=== PATIENT | female | born 1960 | race Caucasian/White ===

== ENCOUNTER 2016-12-13 09:32 | Day surgery (SDC) | payer OTHER ==
[~2016-12-13] VITALS: Ht 157.5 cm; Wt 71.0 kg
[~2016-12-13 09:32] MED LIST: ATOR40TA68 PO; HYDR25TA6 PO; LISI-313 PO
[2016-12-13 09:56] VITALS: Ht 157.5 cm; Wt 71.0 kg
[2016-12-13] MEDS ORDERED: CIME300T14 PO (10:06)
[2016-12-13] MEDS ORDERED: FENTAnyl 50 MCG/ML VIAL ONE (11:17)
[2016-12-13] MEDS ORDERED: MIDAZOLAM 1 MG/ML 2 ML INJ ONE ×2 (11:17)
[2016-12-13 11:25] VITALS: BP 102/51; RESP 14
--- NOTE | 2016-12-16 07:28 | GILP ---
DATE OF PROCEDURE: 12/13/2016 NAME OF PROCEDURE: Colonoscopy and biopsy and polypectomy. PREOPERATIVE DIAGNOSIS: Patient presenting with a history of no significant problems; however, proc edure is performed as a screening procedure to rule out colon polyps. POSTOPERATIVE DIAGNOSES: 1. A 4 mm flat polyp is noted in the mid descending colon. Biopsy was done. 2. A 6 mm polyp on a stalk noted at 15 cm from the anus. Polypectomy was performed. 3. Diverticulosis. DESCRIPTION OF PROCEDURE: After informed written consent was obtained, the patient was asked to lie on the left lateral side. Intravenous anesthesia was given which included 4 mg Versed and 75 mcg o f fentanyl. When the patient became somnolent, the Olympus video colonoscope was introduced into th e rectum and scope was advanced all the way to the cecum. Moderate degree of diverticulosis noted a ll along the colon. Two polyps was noted, one is a 4 mm sessile polyp in the mid descending colon. This was removed with a cold biopsy forceps. A 5 mm polyp on a small stalk noted at 15 cm from the anus. Polypectomy was performed. Rest of the colon was examined up to the cecum. The entire rest of the colon appeared perfectly normal with no mucosal abnormality. On the way out, no additional abnormalities detected and the procedure was terminated. PLAN: Recommend wait for the pathology report and then decide about the next colonoscopy. Dictated By: LUIGI FOUNTAIN/BLAIRE Conf#: [id number] DID#: [id number]
--- NOTE | 2016-12-20 12:06 | HP ---
Date/Time of Note Date/Time of Note DATE: 12/20/16 TIME: 11:56 Assessment/Plan VTE Prophylaxis VTE Prophylaxis Intervention: other (neg) Lines/Catheters IV [facility] Per[facility] IV Assessment/Plan Chief Complaint/Hosp Course r/o colon polyps plan colonoscopy Problems: Assessment/Plan r/o colon polyps Cont'd Hospitalization Reason: none HPI/ROS Admit Date/Time Admit Date/Time 12/13/16 Hx of Present Illness pt here for colonoscopy ROS htn high cholesterol h/o breast cancer Subjective hx not possible: other (neg) Constitutional: other (normal) Eyes: other (normal) ENT: other (normal) Respiratory: other (clear) Cardiovascular: other (nsr) Gastrointestinal: other (neg) Genitourinary: other (neg ) Musculoskeletal: other (normal) Skin: other Neurologic: other (normal) Endocrine: other (neg ) Lymphatic: other (neg ) Psychological: other (neg) Immunologic: other (none) PMH/Family/Social Social History Smoking Status: Current some day smoker LUIGI CALIXTO MD Dec 20, 2016 12:06
== END 2016-12-13 11:23 | disposition home or self-care (01) ==
LOC: GIL 09:32
PROVIDERS: ATTEND Internal Medicine Gastroenterology
DX: Z12.11 Encounter for screening for malignant neoplasm of colon (principal); K63.5 Polyp of colon; K62.0 Anal polyp; I10 Essential (primary) hypertension; Z85.3 Personal history of malignant neoplasm of breast; E78.00 Pure hypercholesterolemia, unspecified; F17.200 Nicotine dependence, unspecified, uncomplicated
CPT/HCPCS: 45380; 88305; J2250; J3010; Z7610

== ENCOUNTER 2017-02-14 09:31 | Day surgery (SDC) | payer OTHER ==
[~2017-02-14] VITALS: Ht 160 cm; Wt 70.7 kg
[~2017-02-14 09:31] MED LIST changes: +CIME300T14 PO
[2017-02-14] MEDS ORDERED: LIDOCAINE 4% SOLUTION 50 ML BTL ONE (10:30)
[2017-02-14] MEDS ORDERED: OMEPRAZOLE (10:34)
[2017-02-14 10:36] VITALS: Ht 160 cm; Wt 70.7 kg
[2017-02-14 10:47] VITALS: BP 94/57; PULSE 86; RESP 18
[2017-02-14] MEDS ORDERED: FENTAnyl 50 MCG/ML VIAL ONE (11:47)
[2017-02-14] MEDS ORDERED: MIDAZOLAM 1 MG/ML 2 ML INJ ONE ×2 (11:47)
[2017-02-14 12:12] VITALS: BP 92/57; PULSE 91; RESP 16
--- NOTE | 2017-02-14 13:01 | GILP ---
DATE OF PROCEDURE: PROCEDURE: Esophagogastroduodenoscopy. PREOPERATIVE DIAGNOSIS: Patient presenting with history of chronic heartburn unresponsive to omepra zole. Rule out esophagitis, rule out Ferreira's esophagus. POSTOPERATIVE DIAGNOSES: 1. Mild reflux esophagitis. 2. Medium to large sized hiatal hernia. 3. Nodularity of the gastric fundus. 4. Minimal antral gastritis. DESCRIPTION OF PROCEDURE: After informed written consent was obtained, the patient was asked to lie on the left lateral side. Intravenous anesthesia was given which included 4 mg Versed and 50 mcg o f fentanyl. When the patient became somnolent, the Olympus video upper endoscope was introduced int o the oropharynx, then into the esophagus. Esophagus showed evidence of minimal erythema above the GE junction indicating mild reflux esophagitis. Biopsies were obtained to rule out Ferreira's esopha monique. Medium to large sized hiatal hernia was noted. The mucosa appeared normal in the hernial sac. Scope at this time was advanced into the stomach. Stomach showed superficial nodular mucosa in th e gastric fundus. Biopsies were obtained to rule out lymphoma. The antrum showed evidence of several areas of erythema. Biopsy was done from the antrum as well to rule out H. pylori infection . The mucosa of the duodenum appeared normal up to the end of the third portion. Endoscope at this time was withdrawn. On the way out, no additional abnormalities detected and the procedure was ter minated. PLAN: Continue present PPI and wait for the pathology report. Dictated By: LUIGI FOUNTAIN/BLAIRE Conf#: [id number] DID#: [id number]
== END 2017-02-14 13:44 | disposition home or self-care (01) ==
LOC: GIL 09:31
PROVIDERS: ATTEND Internal Medicine Gastroenterology
DX: K29.50 Unspecified chronic gastritis without bleeding (principal); K21.0 Gastro-esophageal reflux disease with esophagitis; K29.60 Other gastritis without bleeding; K44.9 Diaphragmatic hernia without obstruction or gangrene; I10 Essential (primary) hypertension
CPT/HCPCS: 43239; 88305; 88312; 88313; J2250; J3010; Z7610